=== PATIENT | female | born 1950 | race Caucasian/White ===

== ENCOUNTER 2017-01-10 14:31 | Inpatient (IN) | payer OTHER ==
[~2017-01-10] VITALS: Ht 154.9 cm; Wt 53.2 kg
[~2017-01-10 14:31] MED LIST: ASPIRIN EC81 MG PO; CLARITIN10 MG PO; FEOSOL325 MG PO
[2017-01-10 15:25] LABS: RED BLOOD COUNT 4.44 M/UL (4.00-5.10); WHITE BLOOD COUNT 17.2 K/UL (4.5-11.0)
[2017-01-10] MEDS ORDERED: ALDACTONE25 MG PO (22:17)
[2017-01-10] MEDS ORDERED: LIPITOR TAB 2020 MG PO (22:17)
[2017-01-10] MEDS ORDERED: DIGOX125 MCG PO (22:17)
[2017-01-10] MEDS ORDERED: SERTRALINE HCL50 MG PO (22:17)
[2017-01-10] MEDS ORDERED: LISINOPRIL20 MG PO (22:18)
[2017-01-10] MEDS ORDERED: ISOSORBIDE MONO60 MG PO (22:18)
[2017-01-10] MEDS ORDERED: LASIX20 MG PO (22:18)
[2017-01-10] MEDS ORDERED: DALIRESP500 MCG PO (22:19)
[2017-01-10] MEDS ORDERED: METOPROLOL SUC100 MG PO (22:19)
[2017-01-10] MEDS ORDERED: K-DUR TAB 10 M10 MEQ PO (22:20)
[2017-01-10] MEDS ORDERED: ZAFIRLUKAST20 MG PO (22:20)
[2017-01-10] MEDS ORDERED: METFORMIN HCL1000 MG PO (22:21)
[2017-01-10] MEDS ORDERED: PROTONIX 40 MG40 M1 PO (22:21)
[2017-01-10] MEDS ORDERED: ALPRAZOLAM0.5 MG PO (22:21)
[2017-01-10] MEDS ORDERED: ADVAIR 500-501 EACH INH (22:22)
[2017-01-11 03:52] LABS: HEMOGLOBIN 10.9 gm/dl (12.3-15.3); RED BLOOD COUNT 3.75 M/UL (4.00-5.10); WHITE BLOOD COUNT 11.6 K/UL (4.5-11.0)
[2017-01-11] MEDS ORDERED: ADVAIR 500-501 EACH INH (16:24)
[2017-01-11] MEDS ORDERED: LOPRESSOR100 MG PO (16:28)
[2017-01-11] MEDS ORDERED: IPRAT-ALBUT 0.5-3 ML INH (16:32)
[2017-01-11] MEDS ORDERED: TYLENOL 325MG325 MG PO (16:36)
[2017-01-11] MEDS ORDERED: PHENERGAN25 MG/1 ML IV (16:37)
[2017-01-11] MEDS ORDERED: DULERA 100 MCG8.8 GM INH (16:40)
[2017-01-11] MEDS ORDERED: ASPIRIN81 MG PO (16:42)
[2017-01-11] MEDS ORDERED: ROCEPHIN 11 G/50 ML IV (16:45)
[2017-01-11] MEDS ORDERED: VANCOCIN 125MG/2.5ML IV (16:48)
[2017-01-11] MEDS ORDERED: VANCOMYCIN HCL1 GM IV (17:00)
[2017-01-12 05:50] LABS: HEMOGLOBIN 10.3 gm/dl (12.3-15.3); RED BLOOD COUNT 3.58 M/UL (4.00-5.10)
[2017-01-12 05:51] LABS: WHITE BLOOD COUNT 4.9 K/UL (4.5-11.0)
[2017-01-12 06:05] LABS: BUN/CREATININE RATIO 23 (0-10)
[2017-01-13 06:16] LABS: BUN/CREATININE RATIO 14 (0-10)
[2017-01-14 05:52] LABS: BUN/CREATININE RATIO 10 (0-10)
[2017-01-15 03:37] LABS: HEMOGLOBIN 9.3 gm/dl (12.3-15.3); RED BLOOD COUNT 3.27 M/UL (4.00-5.10); WHITE BLOOD COUNT 3.8 K/UL (4.5-11.0)
[2017-01-15 03:58] LABS: BUN/CREATININE RATIO 15 (0-10)
[2017-01-16 06:19] LABS: BUN/CREATININE RATIO 23 (0-10)
== END 2017-01-16 18:31 | disposition home or self-care (01) | DRG 683 ==
LOC: ER1 14:31 → M/S 20:42 → CCU 20:42 → ZEROF 20:42 → CCU 22:15 → M/S 01-11 21:45
PROVIDERS: Emergency Medicine; Hospitalist; Internal Medicine Infectious Disease; ADMIT Internal Medicine
DX: N17.9 Acute kidney failure, unspecified (principal); N39.0 Urinary tract infection, site not specified; I50.22 Chronic systolic (congestive) heart failure; D61.818 Other pancytopenia; A08.4 Viral intestinal infection, unspecified; J44.9 Chronic obstructive pulmonary disease, unspecified; I48.0 Paroxysmal atrial fibrillation; I25.10 Atherosclerotic heart disease of native coronary artery without angina pectoris; E87.5 Hyperkalemia; R53.1 Weakness; F41.9 Anxiety disorder, unspecified; K74.60 Unspecified cirrhosis of liver; E11.9 Type 2 diabetes mellitus without complications; I25.2 Old myocardial infarction; D73.1 Hypersplenism; B96.20 Unspecified Escherichia coli [E. coli] as the cause of diseases classified elsewhere; Z79.84 Long term (current) use of oral hypoglycemic drugs; Z99.81 Dependence on supplemental oxygen; Z95.5 Presence of coronary angioplasty implant and graft; Z95.0 Presence of cardiac pacemaker; Z88.0 Allergy status to penicillin; Z87.891 Personal history of nicotine dependence
CPT/HCPCS: 36415; 36600; 70450; 71010; 80048; 80053; 80202; 81001; 82728; 82803; 82962; 83540; 83550; 83605; 84132; 84484; 85025; 85027; 87040; 87077; 87086; 87186; 89055; 93005; 94640; 94664; 96361; 96374; 96375; 97110; 97530; 99285; C9113; J0610; J0696; J1815; J3370; J7030; J7050; J7070; Q0162

== ENCOUNTER → 2017-07-09 | Outpatient (CLI) | payer OTHER ==
[~2017-07-09] MED LIST changes: +ADVAIR 500-501 EACH INH; +ALDACTONE25 MG PO; +ALPRAZOLAM0.5 MG PO; +ASPIRIN81 MG PO; +DALIRESP500 MCG PO; +DIGOX125 MCG PO; +DULERA 100 MCG8.8 GM INH; +IPRAT-ALBUT 0.5-3 ML INH; +ISOSORBIDE MONO60 MG PO; +K-DUR TAB 10 M10 MEQ PO; +LASIX20 MG PO; +LIPITOR TAB 2020 MG PO; +LISINOPRIL20 MG PO; +LOPRESSOR100 MG PO; +METFORMIN HCL1000 MG PO; +METOPROLOL SUC100 MG PO; +PHENERGAN25 MG/1 ML IV; +PROTONIX 40 MG40 M1 PO; +ROCEPHIN 11 G/50 ML IV; +SERTRALINE HCL50 MG PO; +TYLENOL 325MG325 MG PO; +VANCOCIN 125MG/2.5ML IV; +VANCOMYCIN HCL1 GM IV; +ZAFIRLUKAST20 MG PO
== END ==
LOC: CT 07-03 09:30
DX: R10.84 Generalized abdominal pain (principal); R19.7 Diarrhea, unspecified; R11.0 Nausea; M62.81 Muscle weakness (generalized); K74.60 Unspecified cirrhosis of liver; R16.1 Splenomegaly, not elsewhere classified
CPT/HCPCS: J7050; Q9962